=== PATIENT | female | born 1980 | race Caucasian/White ===

== ENCOUNTER 2020-05-23 14:39 | Emergency (ER) | payer OTHER, SELFPAY ==
[2020-05-23 14:43] VITALS: BP 150/82; PULSE 93; RESP 18; TEMP 36.3; O2SAT 100
--- NOTE | 2020-05-23 16:32 | ED.SKABFB ---
HPI - Skin/Abscess/Foreign Bdy General Chief complaint: Skin/Abscess/Foreign Body Stated complaint: rash x3 days Time Seen by Provider: 05/23/20 15:51 Source: patient Mode of arrival: ambulatory Limitations: no limitations History of Present Illness HPI narrative: This is a 40 year old female that presents to the ER for rash x 4 days. Rash started in the axilla and has spread to the trunk. Reports the rash is itchy. She has been taking Benadryl and using calamine lotion with little relief. No known new medications, soaps, lotions or detergent. Denies fever. Related Data Allergies Allergy/AdvReac Type Severity Reaction Status Date / Time No Known Allergies Allergy Mild Verified 08/17/09 18:44 Review of Systems Review of Systems: Narrative: CONSTITUTIONAL: Denies fever SKIN: Reports rash and itching. All systems reviewed & are unremarkable except as noted in HPI and below PMFSH Past Medical History Medical History (Updated 05/23/20 @ 16:38 by Carola Johnson PA-C) No active medical problems Social History Social History (Updated 05/23/20 @ 16:36 by Carola Johnson PA-C) Substance use: never Gender identity (if verbalized by the patient): Female Exam Narrative: Exam Narrative: GENERAL: Well-appearing, well-nourished, and in no acute distress. HEAD: Normocephalic, atraumatic. EYES: EOMI. EXTREMITIES: Normal range of motion. No edema. SKIN: Warm, dry. Red, papular rash noted to the arms and chest NEURO: No focal deficits. Alert and oriented x3. PSYCH: Normal mood and affect Course Vital Signs Vital signs: Vital Signs Temperature 97.3 F L 05/23/20 14:43 Pulse Rate 93 05/23/20 14:43 Respiratory Rate 18 05/23/20 14:43 Blood Pressure 150/82 H 05/23/20 14:43 Pulse Oximetry 100 05/23/20 14:43 Temperature 97.3 F L 05/23/20 14:43 Pulse Rate 93 05/23/20 14:43 Respiratory Rate 18 05/23/20 14:43 Blood Pressure 150/82 H 05/23/20 14:43 Pulse Oximetry 100 05/23/20 14:43 MDM - Skin/Abscess/Foreign Bdy MDM Narrative Medical decision making narrative: Patient presents to the ER for itchy rash. Possible contact dermatitis. Will be started on steroid taper and antihistamines. Was instructed to follow up with Dermatology if rash persists Critical Care Time Critical Care Time Critical Care Time: No Discharge Plan Discharge Clinical Impression: Rash and nonspecific skin eruption Patient Disposition: Home, Self-Care Condition: Stable Instructions: Acute Rash (ED) Additional Instructions: Return to the emergency department if you experience fever, redness and swelling of your wounds, abnormal drainage from your wounds, or any other symptoms that are concerning to you Take a Pepcid and Claritin daily. Take steroid taper as prescribed. Benadryl as needed for severe itching. You may apply hydrocortisone cream daily to the areas of rash Follow-up with primary care doctor. If your rash persists you may need to see a Supervisor Force Adjustment Prescriptions: New prednisone 10 mg tablets,dose pack See Rx Instructions .ROUTE .COMPLEX Qty: 48 RF: 0 Follow-up/Referrals: Rashi Lee MD [Physician] - 3 Days PHYSICIAN,AUTOMOTIVE MANAGER [Primary Care Provider] -
[2020-05-23 17:01] VITALS: BP 142/88; PULSE 88; RESP 20; O2SAT 100
== END 2020-05-23 17:02 | disposition home or self-care (01) ==
PROVIDERS: Emergency Provider Emergency Medicine
DX: R21 Rash and other nonspecific skin eruption (principal)
CPT/HCPCS: 99283

== ENCOUNTER 2020-06-12 20:44 | Emergency (ER) | payer OTHER, SELFPAY ==
[2020-06-12 20:46] VITALS: BP 137/83; PULSE 101; RESP 18; TEMP 36.7; O2SAT 98
[2020-06-12] MEDS: AMOXICILLIN/CLAVULANATE K 875-125 MG TAB 1 TABLET PO (21:04)
--- NOTE | 2020-06-12 21:17 | ED.DENTAL ---
HPI - Dental/Oral General Chief complaint: Dental/Oral Stated complaint: facial swelling, dental pain Time Seen by Provider: 06/12/20 20:51 History of Present Illness HPI Narrative: 40 yo female with h/o dental abscess presents with facial pain and swelling. She first noted pain and mild swelling to the right cheek yesterday. It has increased significantly since then. She has moderate pain. No fever, chills, nausea, vomiting. Related Data Allergies Allergy/AdvReac Type Severity Reaction Status Date / Time No Known Allergies Allergy Mild Verified 08/17/09 18:44 Review of Systems Review of Systems: All systems reviewed & are unremarkable except as noted in HPI and below Constitutional: Constitutional: Denies chills, Denies fever(s) and Denies weakness ENT: Denies sore throat Cardiovascular: Cardiovascular: Denies chest pain Respiratory: Respiratory: Denies dyspnea Gastrointestinal: Gastrointestinal: Denies nausea Neurologic: Denies dizziness and Denies weakness PMFSH Past Medical History Medical History No active medical problems Social History Social History Substance use: never Gender identity (if verbalized by the patient): Female Exam Const: General: no acute distress and alert Orientation/consciousness: patient oriented x3 HENMT: Other: Moderate swelling to right upper lip extending to the maxilla. mild overlying erythema. Extensive decayed and broken teeth. purulent drainage around tooth #6 Eyes: Pupils: Equal, round and reactive pupils present EOM: EOMs intact bilaterally Neck: Neck: lymphadenopathy Resp: Effort & Inspection: normal respiratory effort Auscultation: clear to auscultation bilaterally Cardio: Rate: regular rate Rhythm: regular rhythm GI: GI Palp: Yes Soft to palpation and No Tenderness to palpation present (GI) Neuro: General: patient oriented x3, moves all extremities and no focal motor deficits Speech: normal speech Psych: Affect: Anxious affect present Course Vital Signs Vital signs: Vital Signs Temperature 36.7 C 06/12/20 20:46 Pulse Rate 101 H 06/12/20 20:46 Respiratory Rate 18 06/12/20 20:46 Blood Pressure 137/83 06/12/20 20:46 Pulse Oximetry 98 06/12/20 20:46 Temperature 36.7 C 06/12/20 21:59 Pulse Rate 79 06/12/20 21:59 Respiratory Rate 16 06/12/20 21:59 Blood Pressure 131/86 06/12/20 21:59 Pulse Oximetry 100 06/12/20 21:59 Procedures Abscess I/D face: Date of Incision: 06/12/20 Side (if applicable): right (dental) Technique: needle aspiration Amount of fluid expressed (mL): 1 Irrigation: No Packing used?: none I&D Results: Pus Complications: pain Nerve Block Nerve Block 1: Local Anesthetic: lidocaine 1% and with epi Amount of anesthesia used (mL): 5 Side: right Intraoral Nerve Block: infraorbital Procedure Successful: Yes Patient Tolerated Procedure: well MDM - Dental/Oral MDM Narrative Medical decision making narrative: Abscess drained Differential Diagnosis Differential diagnosis: Likely dental abscess Discharge Plan Discharge Clinical Impression: Dental abscess Patient Disposition: Home, Self-Care Condition: Stable Instructions: Antibiotic Form, Dental Abscess (ED) Prescriptions: New amoxicillin-pot clavulanate [Augmentin] 875-125 mg tablet 1 tablet PO Q12H Qty: 20 RF: 0 No Action prednisone 10 mg tablets,dose pack See Rx Instructions .ROUTE .COMPLEX Qty: 48 RF: 0 Follow-up/Referrals: PHYSICIAN,UAT TESTER [Primary Care Provider] -
[2020-06-12 21:59] VITALS: BP 131/86; PULSE 79; RESP 16; TEMP 36.7; O2SAT 100
== END 2020-06-12 22:00 | disposition home or self-care (01) ==
PROVIDERS: Emergency Provider Emergency Medicine
DX: K04.7 Periapical abscess without sinus (principal)
CPT/HCPCS: 41800; 99283; A9270

== ENCOUNTER 2020-07-14 15:28 | Emergency (ER) | payer OTHER, SELFPAY ==
--- NOTE | ~2020-07-14 | XR_ITS ---
EXAMINATION: XR knee LT min 4V EXAM DATE: 07/14/2020 16:12 INDICATION: Left knee pain, fell yesterday. TECHNIQUE: Left knee frontal, crosstable lateral, orthogonal oblique projections for interpretation. There is no prior study for comparison. FINDINGS: No evidence osteochondral defect or joint body in the left knee joint. There are no acute fractures or dislocations identified. There is no subcutaneous gas. There is moderate-sized joint effusion. There are no radiopaque foreign bodies. IMPRESSION: 1. Left knee exam without acute osseous findings. 2. Moderate-sized joint effusion. Reviewed, dictated and finalized at location A. T ADMINISTRATIVE ASSISTANT
[2020-07-14 15:48] VITALS: BP 142/93; PULSE 109; RESP 18; TEMP 36.6; O2SAT 99
--- NOTE | 2020-07-14 18:48 | ED.LOWEXIN ---
HPI - Extremity Injury (Lower) General Chief Complaint: Extremity Injury, Lower Stated Complaint: left knee pain Time Seen by Provider: 07/14/20 18:32 Source: patient Mode of arrival: ambulatory Limitations: no limitations History of Present Illness HPI Narrative: This is a 40 year old female that presents to the ER for left knee injury sustained last night. Reports she twisted the knee. Reports history of problems with this knee in the past. Pain is worse with movement and weightbearing, and relieved with rest. Denies decreased range of motion or numbness. Related Data Allergies Allergy/AdvReac Type Severity Reaction Status Date / Time No Known Allergies Allergy Mild Verified 08/17/09 18:44 Review of Systems Review of Systems: Narrative: CONSTITUTIONAL: Denies fever SKIN: Denies rash MUSCULOSKELETAL: Reports joint pain, and myalgia. NEUROLOGIC: Denies numbness All systems reviewed & are unremarkable except as noted in HPI and below PMFSH Past Medical History Medical History No active medical problems Social History Social History Substance use: never Gender identity (if verbalized by the patient): Female Exam Narrative: Exam Narrative: GENERAL: Well-appearing, well-nourished, and in no acute distress. HEAD: Normocephalic, atraumatic. EYES: EOMI. EXTREMITIES: Normal range of motion. Mild edema about the left knee anteriorly, no erythema or warmth. Normal DP pulses. Normal sensation SKIN: Warm, dry, no rash. NEURO: No focal deficits. Alert and oriented x3. PSYCH: Normal mood and affect Course Vital Signs Vital signs: Vital Signs Temperature 97.9 F 07/14/20 15:48 Pulse Rate 109 H 07/14/20 15:48 Respiratory Rate 18 07/14/20 15:48 Blood Pressure 142/93 H 07/14/20 15:48 Pulse Oximetry 99 07/14/20 15:48 Temperature 97.9 F 07/14/20 15:48 Pulse Rate 109 H 07/14/20 15:48 Respiratory Rate 18 07/14/20 15:48 Blood Pressure 142/93 H 07/14/20 15:48 Pulse Oximetry 99 07/14/20 15:48 MDM - Extremity Injury (Lower) MDM Narrative Medical decision making narrative: Patient presents the emergency department for left knee pain after an injury last night. Left knee x-rays without acute osseous abnormalities. Does show a moderate-sized joint effusion. Patient placed in a knee immobilizer and given crutches. Instructed on care of knee sprain. Will be given follow-up with orthopedics. She was given warnings to return to the ER Imaging Data Radiologist's impression: ITS Impressions Knee X-Ray 07/14/20 16:15 IMPRESSION: 1. Left knee exam without acute osseous findings. 2. Moderate-sized joint effusion. Critical Care Time Critical Care Time Critical Care Time: No Discharge Plan Discharge Clinical Impression: Knee sprain Qualifiers: Encounter type: initial encounter Involved ligament of knee: unspecified ligament Laterality: left Qualified Code(s): S83.92XA - Sprain of unspecified site of left knee, initial encounter Patient Disposition: Home, Self-Care Condition: Stable Instructions: Knee Sprain (ED) Additional Instructions: Return to the emergency department if you experience fever, redness and swelling of your leg, numbness, or any other symptoms that are concerning to you Wear knee immobilizer and use crutches. No weight on the affected leg. Ice and elevate extremity. Tylenol or ibuprofen as needed for pain Follow up with orthopedic for further care. Prescriptions: No Action prednisone 10 mg tablets,dose pack See Rx Instructions .ROUTE .COMPLEX Qty: 48 RF: 0 amoxicillin-pot clavulanate [Augmentin] 875-125 mg tablet 1 tablet PO Q12H Qty: 20 RF: 0 Follow-up/Referrals: PHYSICIAN,LUMBER PLANER [Primary Care Provider] - Curt Fields MD [Physician] - 1 Week
[2020-07-14] MEDS: KETOROLAC (*BKC) 60 MG/2 ML VIAL IM (18:52)
== END 2020-07-14 19:19 | disposition home or self-care (01) ==
PROVIDERS: Emergency Provider Emergency Medicine
DX: S83.92XA Sprain of unspecified site of left knee, initial encounter (principal); X50.9XXA Other and unspecified overexertion or strenuous movements or postures, initial encounter
CPT/HCPCS: 73564; 96372; 99283; J1885

== ENCOUNTER 2020-07-22 06:39 | Outpatient (CLI) | payer OTHER, SELFPAY ==
--- NOTE | ~2020-07-22 | MR_ITS ---
EXAMINATION: MR knee LT wo con DATE: 07/22/2020 07:28 INDICATION: Anterior cruciate ligament sprain with inability to bear weight post injury 2 weeks prior . TECHNIQUE: Magnetic resonance imaging (MRI) of the left knee was performed without intravenous contra st. Sequences included coronal PD-weighted FSE, coronal PD-weighted FS FSE, sagittal T2-weighted FSE , sagittal PD-weighted FS FSE and axial PD weighted fat saturated FSE. COMPARISON: None. FINDINGS: Medial compartment: Bucket-handle tear of the medial meniscus stenting from anterior to the posterior horn. There is a la rge laterally displaced meniscal flap which comprises the majority of the meniscal tissue and which e xtends anteroposteriorly across the intercondylar eminence. Articular cartilage is normal. Lateral compartment: Small likely longitudinal horizontal tear involving the free edge and inferior articular surface of t he posterior horn of the lateral meniscus. There is mild chondral fissuring along the posterior rim o f the lateral tibial plateau. Remaining articular cartilage is normal. Patellofemoral compartment: Small region of mild chondral fissuring along the inferolateral aspect of the medial trochlea. Remain ing articular cartilage is normal. Ligaments and tendons: Full-thickness tear of the anterior cruciate ligament with the lax torn ligament lying along side the displaced bucket-handle flap. The posterior cruciate ligament is normal. The fibular collateral liga ment complex is normal. Small amount of fluid extending along a longitudinal split tear extending nael roximately 2.5 cm proximal to distal along the otherwise intact appearing fibers between the posterio r and middle thirds of the proximal medial collateral ligament. The extensor mechanism is normal. The visualized medial and lateral hamstring tendons as well as the iliotibial band are normal. Fluid: Moderate-sized left knee joint effusion. No loose osteochondral bodies identified. 4.5 x 2.0 x 1.8 cm Mitchell's cyst. Osseous/other: Normal marrow signal. No bone contusion, fracture or pathologic marrow replacing process. IMPRESSION: 1. Complete tear of the anterior cruciate ligament. 2. Bucket-handle tear of the medial meniscus with lateral displacement of a large meniscal flap which comprises the majority of the meniscal tissue. 3. Small tear at the posterior horn of the lateral meniscus, likely a longitudinal horizontal tear. 4. Small longitudinal split tear extending along the otherwise intact appearing fibers of the proxima l medial collateral ligament. 5. 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 6. Moderate-sized left knee joint effusion and moderate-sized Mitchell's cyst. Reviewed, dictated and finalized at location A. OGRAPHER SECRETARY IMPRESSION: 1. Complete tear of the anterior cruciate ligament. 2. Bucket-handle tear of the medial meniscus with lateral displacement of a lar ge meniscal flap which comprises the majority of the meniscal tissue. 3. Small tear at the posterior horn of the lateral meniscus, likely a longitudi nal horizontal tear. 4. Small longitudinal split tear extending along the otherwise intact appearing fibers of the proximal medial collateral ligament. 5. Minimal osteoarthritis with small regions of moderate grade chondromalacia a long the posterior margin of the lateral tibial plateau and inferolateral aspec t of the medial trochlea. 6. Moderate-sized left knee joint effusion and moderate-sized Mitchell's cyst.
== END 2020-07-22 06:40 | disposition home or self-care (01) ==
PROVIDERS: Visit Provider Orthopaedic Surgery
DX: S83.512A Sprain of anterior cruciate ligament of left knee, initial encounter (principal); S83.212A Bucket-handle tear of medial meniscus, current injury, left knee, initial encounter; S83.282A Other tear of lateral meniscus, current injury, left knee, initial encounter; M17.12 Unilateral primary osteoarthritis, left knee; M71.22 Synovial cyst of popliteal space [Baker], left knee; M25.462 Effusion, left knee
CPT/HCPCS: 73721

== ENCOUNTER → 2020-07-28 00:51 | Outpatient (CLI) | payer OTHER, SELFPAY ==
[2020-07-28 19:08] LABS: SARS-CoV-2 RNA PCR Negative
== END ==
PROVIDERS: Visit Provider Orthopaedic Surgery
DX: Z01.812 Encounter for preprocedural laboratory examination (principal); Z20.822 Contact with and (suspected) exposure to COVID-19
CPT/HCPCS: C9803; U0003; U0005

== ENCOUNTER 2020-07-31 00:47 | Day surgery (SDC) | payer OTHER, SELFPAY ==
[2020-07-27 19:19] VITALS: BMI 23.6
[2020-07-31] VITALS (11 sets, daily range): BP systolic 110–137; BP diastolic 76–92; PULSE 64–95; RESP 14–18; TEMP 36.6–36.9; O2SAT 95–100; BMI 23.3
--- NOTE | 2020-07-31 06:51 | WPDHPUPDATE1 ---
History and Physical Update Update Date/Time: 07/31/20 06:51 History and Physical has been reviewed, including an updated exam of the patient. There are NO changes in the patient's condition. Risks, benefits, and alternatives have been discussed and questions answered. Patient agrees to proceed with procedure.
[2020-07-31] MEDS: KETOROLAC 15 MG/ML VIAL (*BKC) IV PUSH (08:24)
[2020-07-31] MEDS: ACETAMINOPHEN 500 MG TABLET 1000 MG PO (08:24)
[2020-07-31] MEDS: LACTATED RINGERS 1,000 ML 30 ML IV CONT (08:25)
--- NOTE | 2020-07-31 08:38 | WPDANESEPPF ---
Anes - Initial Pre Proc Eval Procedure: Operation Date: 07/31/20 09:30 Proposed Procedures p Anterior Cruciate Ligament Reconstruction Left Side - Curt Fields MD Date/Time: 07/31/20 08:38 Surgeon: Curt Fields MD Pre Op Diagnosis: ACL Rupture Left Knee Patient Data Age: 40 Gender: F Height: 5 ft 8 in Weight: 70.31 kg Allergies Allergy/AdvReac Type Severity Reaction Status Date / Time bee venom protein (honey bee) Allergy Unknown Unknown Verified 07/27/20 10:48 poison katrin extract Allergy Unknown Unknown Verified 07/27/20 10:48 venom-wasp Allergy Unknown Unknown Verified 07/27/20 10:48 Home Medications Medication Instructions Recorded Confirmed Type ibuprofen 200 mg capsule 200 mg PO Q6H PRN 07/27/20 07/28/20 History Patient hx anesthesia problems: none Family hx anesthesia problems: none PMFSH Past Medical History Medical History No active medical problems Social History Social History Smoking packs per day: 0.5 Smoking cigarettes per day: 10.0 Years smoked: 25 Smoking pack-years: 12.50 Smoking status: Current every day smoker Tobacco type: cigarettes Alcohol intake: current Substance use: never Living arrangements: with family Gender identity (if verbalized by the patient): Female Spiritual care concerns: No Anes - Eval Final PreProcedure Day of Procedure 07/31/20 08:38 Patient weight: normal Heart: regular rate and rhythm Lungs: decreased breath sounds Airway: Mallampati scale class II Neurological: alert and oriented Last oral intake: >/= 8 hours ASA classification: II Emergent: no Anesthetic plan: proceed Anesthesia type and monitoring: general LMA and standard monitoring Informed Consent: The patient's anesthetic plan and its attendant risks and benefits were discussed with the patient/family/POA. Questions were solicited and answers provided to the satisfaction of the patient/family/POA.
[2020-07-31] MEDS: ceFAZolin 2 GM/D5W 50 ML 2 GM/50 ML BAG IVPB (09:11)
[2020-07-31] MEDS: BUPIVACAINE/EPINEPHRINE 0.5% 30 ML VIAL INFILTRATE (09:58)
--- NOTE | 2020-07-31 11:52 | PM.PROC ---
Procedure Note - Detailed Date of procedure: 07/31/20 Pre-op diagnosis: ACL Rupture Left Knee Post-op diagnosis: other ( 1. ACL deficiency left knee 2. Bucket-handle medial meniscus tear 3. Lateral meniscus tear) Procedure performed: 1. Arthroscopic anterior cruciate ligament reconstruction with patellar tendon autograft. 2. Arthroscopic medial and lateral meniscectomy. Implants: [employer] interference screws. Titanium. 7 x 20 mm. 9 x 25 mm on the tibia. Anesthesia: GLMA and GETA Surgeon: Curt Fields MD Funnel Setter: Sandy Duke PA-C Estimated blood loss (mL): 50 Drains: No Complications: None Condition: stable Disposition: PACU Findings: Physician teachers' assistant, Sandy Duke PA-C, required for surgery; including patient positioning, draping, tissue retraction, maintaining instrument position, wound closure, and dressing placement. Operative detail. The patient was given preoperative antibiotics prior to going to the operating room. A general anesthetic was administered. Examination under anesthesia was performed. The leg was prepped and draped in the usual sterile fashion after placing the leg in the arthroscopic leg hawkins. Standard inferomedial, inferolateral and superior-medial arthroscopic portals were established. In flow was obtained with the saline pump. The residual ACL tissue was debrided with the arthroscopic shaver and the radioablation probe. Minimal notchplasty was performed as needed. The menisci were carefully inspected. the medial meniscus had a significant bucket-handle tear. The meniscus was quite damaged and irrepairable. Subtotal medial meniscectomy was performed. The lateral meniscus had moderate tearing at the lateral aspect. This was treated with partial lateral meniscectomy. Good stable remaining meniscus. Mild softening of the tibia and femoral cartilage. The medial femur had a fairly large area of shallow cartilage wear. The graft was fashioned on the back table at this point. Attention was then turned back to the knee. The limb was exsanguinated and the tourniquet reinflated to 300 millimeters of mercury. The drill guide was placed at the big sandy ACL footprint on the femur. An anatomic location was chosen, and confirmation of safe placement with the over the top guide. The flexible guide wire was drilled out of the lateral thigh anterior to midline. The flexible reamer was used to drill the tunnel for the femoral graft. A suture was placed through the pin and brought out through the thigh. The ACL guide was used at this time to drill a guide pin for the tibial tunnel. A separate small incision was utilized at the medial tibia. This was reamed with the strait reamer. The tibia guide was set at 55?. Typical anatomic landmarks were used for the tibial footprint. The lateral meniscus was utilized, and the location placed anatomically. The graft was then fed through the tibial tunnel into the femur. The graft was carefully positioned with the bone block anteriorly on the femur. A small notch was created to accept the screw. The nitinol wire was placed and the 7 x 20 millimeter interference screw was placed with excellent purchase. The graft was cycled. The tiba bone block was secured with the knee at 30? of flexion and slight posterior drawer was applied. The distal screw was placed similarly over the nitinol wire. An 9 x 25 millimeter titanium screw was used. Fixation was excellent. Care was taken to assure that there was no impingement of the graft. The arthroscopic instruments were removed. The tourniquet was released. The wounds were closed with interrupted 4-0 Monocryl suture followed by Steri-Strips. The deeper tissues on the tibia side were closed with 2-0 Vicryl suture. Sterile bulky dressing was applied with light compression. A knee immobilizer was placed. The patient was extubated and brought to the recovery room. There were no complications.
[2020-07-31] MEDS: HYDROmorphone HCL INJ (*CRX) 1 MG/ML SYR IV PUSH ×2 (11:55→12:16)
[2020-07-31] MEDS: oxyCODONE HCL (*CRX) 5 MG TAB IR PO (13:14)
[2020-07-31] MEDS: ONDANSETRON INJ 4 MG/2 ML VIAL IV PUSH (14:12)
--- NOTE | 2020-07-31 16:36 | SUR.PHASEII ---
1330: Patient states, My insurance isn't accepted at [facility] and needs to be changed to [facility] please. RN contacted Dr. iFelds and the pharmacy was updated in the [facility].
== END 2020-07-31 14:54 | disposition home or self-care (01) ==
PROVIDERS: Visit Provider Orthopaedic Surgery
PROC: (CPT 29888; principal; 2020-07-31 09:30)
DX: S83.512A Sprain of anterior cruciate ligament of left knee, initial encounter (principal); S83.212A Bucket-handle tear of medial meniscus, current injury, left knee, initial encounter; S83.282A Other tear of lateral meniscus, current injury, left knee, initial encounter; W18.49XA Other slipping, tripping and stumbling without falling, initial encounter; F17.210 Nicotine dependence, cigarettes, uncomplicated
CPT/HCPCS: 29880; 29888; A9270; C1713; J0690; J1100; J1170; J1885; J2250; J2405; J2704; J3010; J7120; L1830

== ENCOUNTER 2021-04-30 09:36 | Outpatient (CLI) | payer OTHER, SELFPAY ==
--- NOTE | ~2021-04-30 | MR_ITS ---
EXAMINATION: MR knee LT wo con DATE: 04/30/2021 10:41 INDICATION: Strain of unspecified muscles and tendons. TECHNIQUE: Magnetic resonance imaging (MRI) of the left knee was performed without intravenous contra st. Sequences included axial PD-weighted FS FSE and STIR FSE, coronal and sagittal PD-weighted FSE, s agittal T2-weighted FS FSE, and coronal STIR FSE. COMPARISON: Left knee radiographs 03/11/2021, MRI 07/22/2020 FINDINGS: Medial compartment: There is a complex tear involving body and posterior horn of medial meniscus. The medial compartment cartilage is normal. Lateral compartment: There is a radial tear of posterior horn of lateral meniscus. There is shallow partial-thickness cart ilage loss of femoral condyle involving the posterior articular surface. There is cartilage surface i rregularity of tibial condyle. Patellofemoral compartment: Patellar cartilage is normal. Trochlear cartilage is normal. Ligaments and tendons: There are changes of anterior cruciate ligament reconstruction. The graft demonstrates increased sign al intensity and disorganized fibers. The posterior cruciate ligament is intact. Again seen is fluid between fibers of medial collateral ligament, consistent with a partial tear. The lateral collateral ligament complex is intact. The patellar tendon is normal. Fluid: There is a small knee joint effusion. There is a small Mitchell's cyst. IMPRESSION: 1. Anterior cruciate ligament reconstruction with increased signal and disorganized fibers in the gra ft suggesting graft failure. 2. Mild chondrosis of lateral compartment. 3. Tears of medial and lateral menisci. 4. Small knee joint effusion. 5. Small Mitchell's cyst. Reviewed, dictated and finalized at location A. LE SKIMMER IMPRESSION: 1. Anterior cruciate ligament reconstruction with increased signal and disorgan ized fibers in the graft suggesting graft failure. 2. Mild chondrosis of lateral compartment. 3. Tears of medial and lateral menisci. 4. Small knee joint effusion. 5. Small Mitchell's cyst.
== END 2021-04-30 09:37 | disposition home or self-care (01) ==
PROVIDERS: Visit Provider Orthopaedic Surgery
DX: S86.912A Strain of unspecified muscle(s) and tendon(s) at lower leg level, left leg, initial encounter (principal); M71.22 Synovial cyst of popliteal space [Baker], left knee; S83.282A Other tear of lateral meniscus, current injury, left knee, initial encounter; S83.242A Other tear of medial meniscus, current injury, left knee, initial encounter; M25.462 Effusion, left knee
CPT/HCPCS: 73721